=== PATIENT | male | born 1975 | race Two or more races ===

== ENCOUNTER 2022-10-28 22:29 | Emergency (ER) | payer OTHER ==
[~2022-10-28] VITALS: Ht 177.8 cm; Wt 99.8 kg
[2022-10-29] MEDS ORDERED: CIPRO500 MG PO (07:04)
[2022-10-29] MEDS ORDERED: INTESTINEX680 M1 PO (07:04)
== END 2022-10-29 07:14 | disposition home or self-care (01) ==
LOC: ER 22:29
DX: A08.8 Other specified intestinal infections (principal)

== ENCOUNTER 2023-12-10 08:19 | Emergency (ER) | payer OTHER ==
[~2023-12-10] VITALS: Ht 177.8 cm; Wt 104.3 kg
[~2023-12-10 08:19] MED LIST: CIPRO500 MG PO; INTESTINEX680 M1 PO
[2023-12-10] MEDS ORDERED: COZAAR25 MG PO (08:33)
[2023-12-10] MEDS ORDERED: DEXAMETHASONE SODIUM PHOSPHATE 4 MG/ML VIAL IM STA (09:37)
[2023-12-10] MEDS ORDERED: KETOROLAC TROMETHAMINE 30 MG VIAL IM STA (09:37)
[2023-12-10] MEDS ORDERED: ORPHENADRINE CITRATE 30 MG/ML AMPUL IM STA (09:38)
[2023-12-10] MEDS ORDERED: KETOROLAC TROMETHAMINE 30 MG VIAL ONE (09:53)
[2023-12-10] MEDS ORDERED: ORPHENADRINE CITRATE 30 MG/ML AMPUL ONE (09:53)
[2023-12-10] MEDS ORDERED: DEXAMETHASONE SODIUM PHOSPHATE 4 MG/ML VIAL ONE (09:53)
[2023-12-10] MEDS ORDERED: NABUMETONE750 MG PO (10:36)
[2023-12-10] MEDS ORDERED: ZANAFLEX4 MG PO (10:36)
== END 2023-12-10 10:44 | disposition home or self-care (01) ==
LOC: ER 08:20
DX: G44.209 Tension-type headache, unspecified, not intractable (principal); M62.830 Muscle spasm of back; I10 Essential (primary) hypertension

== ENCOUNTER → 2024-09-01 | Emergency (ER) | payer OTHER ==
[~2024-09-01] VITALS: Ht 177.8 cm; Wt 102.1 kg
[~2024-09-01] MED LIST changes: +COZAAR25 MG PO; +KETOROLAC TROMETHAMINE 60 MG VIAL IM ONE; +KETOROLAC TROMETHAMINE 60 MG VIAL IM STA; +NABUMETONE750 MG PO; +ORPHENADRINE CITRATE 30 MG/ML AMPUL IM STA; +ORPHENADRINE CITRATE 30 MG/ML AMPUL ONE; +ZANAFLEX4 MG PO
== END | disposition home or self-care (01) ==
LOC: ER 09:30
DX: M62.830 Muscle spasm of back (principal); I10 Essential (primary) hypertension